=== PATIENT | male | born 1980 | race African-American/Black ===

== ENCOUNTER 2017-03-06 19:31 | Emergency (ER) | payer OTHER ==
[~2017-03-06] VITALS: Ht 180.3 cm; Wt 70.5 kg
[2017-03-06 20:45] VITALS: BP 141/77
[2017-03-06] MEDS ORDERED: PERTUSS(ACELL),DIPH,TET VAC/PF 0.5 ML VIAL IM ONE ×2 (21:00)
== END 2017-03-06 21:11 | disposition short-term general hospital (02) ==
LOC: EMS 19:34
DX: S01.81XA Laceration without foreign body of other part of head, initial encounter (principal); S30.1XXA Contusion of abdominal wall, initial encounter; S80.812A Abrasion, left lower leg, initial encounter; S80.811A Abrasion, right lower leg, initial encounter; S60.512A Abrasion of left hand, initial encounter; S60.511A Abrasion of right hand, initial encounter; Y08.89XA Assault by other specified means, initial encounter; Y93.89 Activity, other specified; Y92.488 Other paved roadways as the place of occurrence of the external cause; Y99.8 Other external cause status
CPT/HCPCS: 90471; 90715; 99291